=== PATIENT | male | born 1975 | race Caucasian/White ===

== ENCOUNTER 2018-11-02 00:09 | Emergency (ER) | payer OTHER ==
[~2018-11-02] VITALS: Ht 188 cm; Wt 95.3 kg
--- NOTE | ~2018-11-02 | EKG ---
[place] [address] ELECTROCARDIOGRAM REPORT Name: BEBA PRATT Room: [facility]#: [id number] Admission: 11/02/18 Attend Phys: Discharge: 11/02/18 Date of : 71 Report #: [id number] THIS REPORT FOR: //name// [facility] ED Test Date: 2018-11-02 Test Time: 00:31:41 Pat Name: BEBA PRATT Department: Room: Gender: M Accreditation Manager: MARK : 1975 Requested By: Juan A Oropeza Order Number: [id number] MD: Measurements Intervals [place] Rate: 125 P: 47 SC: 159 QRS: 59 QRSD: 82 T: 72 QT: 295 QTc: 426 Interpretive Statements Sinus tachycardia Ventricular premature complex Probable left atrial enlargement Probable anteroseptal infarct, old Baseline wander in lead(s) V1 Compared to ECG 04/18/2017 19:33:08 Ventricular premature complex(es) now present Myocardial infarct finding now present ST (T wave) deviation no longer present [email or web address] By: 0031 Epiphany [place], [place] /EPI
[~2018-11-02 00:09] MED LIST: INDOMETHACIN 5050 M1 PO; KEPPRA 500 MG500 M1 PO; NICOTINE PATCH1 EAC2 TD; PREDNISONE 20 M20 MG PO; ZYLOPRIM 300 MG PO
[2018-11-02 00:47] LABS: URINE BILIRUBIN NEGATIVE (Negative); URINE BLOOD NEGATIVE (Negative); URINE CLARITY CLEAR; URINE COLOR YELLOW; URINE GLUCOSE-RANDOM NEGATIVE (Negative); URINE LEUKOCYTES-REFLEX NEGATIVE (Negative); URINE NITRITE-REFLEX NEGATIVE (Negative); URINE PROTEIN NEGATIVE (Negative); URINE UROBILINOGEN 0.2 E.U./dl (0.2-1.0)
[2018-11-02 00:51] LABS: ABSOLUTE EOSINOPHILS 0.1 thou/uL (0.0-0.7); ABSOLUTE LYMPHOCYTES 1.6 thou/uL (0.8-5.3); ABSOLUTE MONOCYTES 0.5 thou/uL (0.0-1.2); ABSOLUTE NEUTROPHILS 5.3 thou/uL (1.6-8.1); BASOPHILS 0.4 %; EOSINOPHILS 0.9 %; HEMATOCRIT 41.3 % (42.0-52.0); HEMOGLOBIN 14.4 gm/dL (14.0-18.0); LYMPHOCYTES 21.7 %; MCH 34.9 pg (26.0-34.0); MCHC 34.8 g/dL (28.0-37.0); MCV 100.4 fL (80.0-100.0); MONOCYTES 6.1 %; NUCLEATED RBCS 0 /100WBC; PLATELET COUNT* 157 thou/uL (150-400); POLYS 70.9 %; RBC 4.12 mil/uL (4.50-6.00); RDW-CV 14.3 % (10.5-14.5); WBC 7.5 thou/uL (4.0-11.0)
[2018-11-02 01:00] LABS: URINE KETONES 3+ (Negative)
[2018-11-02 01:08] LABS: CALCIUM 9.4 mg/dL (8.5-10.1); CREATININE 0.8 mg/dL (0.6-1.3); POTASSIUM 3.4 mmol/L (3.5-5.1)
[2018-11-02 01:12] LABS: ALBUMIN 3.9 g/dL (3.4-5.0); TOTAL BILIRUBIN 1.2 mg/dL (<0.1-1.0); TOTAL PROTEIN 7.2 g/dL (6.4-8.2)
[2018-11-02 01:16] LABS: APTT 20.3 Seconds (25.0-31.3); PROTIME 10.6 Seconds (9.20-11.50)
[2018-11-02 02:28] VITALS: BP 141/93
[2018-11-03] MEDS ORDERED: PANTOPRAZOLE SO40 M1 PO (16:27)
== END 2018-11-02 02:28 | disposition left against medical advice (07) ==
LOC: M.ERS 00:09
PROVIDERS: Family Medicine
DX: R11.2 Nausea with vomiting, unspecified (principal); M10.9 Gout, unspecified; Z88.0 Allergy status to penicillin

== ENCOUNTER 2018-11-02 13:16 | Inpatient (IN) | payer OTHER ==
[~2018-11-02] VITALS: Ht 188 cm; Wt 98.9 kg
--- NOTE | ~2018-11-02 | CON ---
[address] [address] CONSULTATION Name: BEBA PRATT Room: [address] IN [facility]#: [id number] Admission: 11/02/18 Attend Phys: Ba Mckeon Discharge: 11/03/18 Date of : 71 Report #: [id number] THIS REPORT FOR: //name// CC: RYANNE physician/PCP Carey Richey DATE OF SERVICE: 11/03/2018 HISTORY OF PRESENT ILLNESS: This is a pleasant 43-year-old male, with past medical history significant for gout and alcohol abuse, who is presenting with abdominal pain, nausea and hematemesis. The patient reports he initially threw up dark-colored material, the consistency of coffee grounds and a couple of hours prior to presentation, had bright red blood in his vomit. The patient has had no further episodes since his hospitalization. The patient denies similar episodes in the past. The patient does report taking ibuprofen on a daily basis for his gout. Additionally, the patient also reports drinking 6-pack of beer every day and he has been doing this for the last several years. PAST MEDICAL HISTORY: As mentioned above, gout and alcohol abuse. PAST SURGICAL HISTORY: The patient had hand and elbow surgery in the remote past. SOCIAL HISTORY: The patient smokes 1 pack per day, takes about 6-pack of beer every day, but denies any recreational drug use. FAMILY HISTORY: There is no family history of esophageal, gastric or colonic malignancy. REVIEW OF SYSTEMS: Negative except for what is mentioned in the HPI. PHYSICAL EXAMINATION: VITAL SIGNS: Temperature 36.6, pulse rate 87, blood pressure 106/62, pulse ox 100% on room air. GENERAL: The patient is alert, awake, oriented x 3. HEENT: Pupils are equal, round, reactive to light and accommodation. Mucous membranes are moist. There is no congestion. LUNGS: Clear to auscultation bilaterally. CARDIOVASCULAR: Rate and rhythm regular, S1, S2 present. ABDOMEN: Soft. There is no distention, guarding or rigidity. EXTREMITIES: Warm, well perfused. There is no edema. SKIN: Warm and dry. LABORATORY DATA: Hemoglobin 8.2, hematocrit 23.8, platelet count 114, WBC count 7.2. Sodium 144, potassium 3.7, chloride 109, bicarbonate 27, BUN 22, creatinine is 0.8. Abdominal MRI, fatty [place] [address] CONSULTATION Name: TERRI PRATTCEZAR Rojas Room: [address]#: [id number] Admission: 11/02/18 Attend Phys: Ba Mckeon Discharge: 11/03/18 Date of : 71 Report #: [id number] significant biliary enlargement. No bile duct enlargement and normal gallbladder. ASSESSMENT AND PLAN: A pleasant 43-year-old male, with past medical history significant for alcohol abuse and anxiety, presenting with hematemesis. We will proceed with upper GI endoscopy to rule out the cause of bleeding. The patient will also be placed on PPI and octreotide drips for possible cirrhotic bleeding. Strongly advised cessation of NSAID use as this can cause ulceration of the upper gastrointestinal tract and bleeding. Also, recommended that the patient should moderate his alcohol use. Otherwise, the fatty liver disease can progress to laura cirrhosis, which is irreversible. Further recommendations will be based on results of the EGD. By: [id number] Lennon MD /nt
[2018-11-02 13:21] VITALS: BP 103/73
[2018-11-02 13:56] LABS: ABSOLUTE BASOPHILS 0.1 thou/uL (0.0-0.2); ABSOLUTE LYMPHOCYTES 1.5 thou/uL (0.8-5.3); ABSOLUTE MONOCYTES 0.7 thou/uL (0.0-1.2); BASOPHILS 0.7 %; EOSINOPHILS 0.2 %; HEMATOCRIT 35.4 % (42.0-52.0); LYMPHOCYTES 11.5 %; MCH 34.9 pg (26.0-34.0); MCHC 34.7 g/dL (28.0-37.0); MCV 100.7 fL (80.0-100.0); MONOCYTES 4.9 %; MPV 9.3 fl. (7.2-11.1); NUCLEATED RBCS 0 /100WBC; PLATELET COUNT* 187 thou/uL (150-400); POLYS 82.7 %; RBC 3.52 mil/uL (4.50-6.00); RDW-CV 13.9 % (10.5-14.5); WBC 13.3 thou/uL (4.0-11.0)
[2018-11-02 13:57] LABS: HEMOGLOBIN 12.3 gm/dL (14.0-18.0)
[2018-11-02 14:09] LABS: APTT 22.6 Seconds (25.0-31.3); INR 1.1; PROTIME 10.8 Seconds (9.20-11.50)
[2018-11-02 14:11] LABS: ANION GAP 12 mmol/L (7-16); BUN 37 mg/dL (7-18); CALCIUM 8.9 mg/dL (8.5-10.1); CHLORIDE 102 mmol/L (98-107); CO2 25 mmol/L (21-32); GLUCOSE 164 mg/dL (70-99); POTASSIUM 3.9 mmol/L (3.5-5.1); SODIUM 139 mmol/L (136-145)
[2018-11-02 14:20] LABS: ALBUMIN 3.6 g/dL (3.4-5.0); ALKALINE PHOSPHATASE 82 U/L (46-116); SGOT 63 U/L (15-37); SGPT 110 U/L (30-65); TOTAL BILIRUBIN 1.6 mg/dL (<0.1-1.0); TOTAL PROTEIN 6.6 g/dL (6.4-8.2); TROPONIN-I LEVEL <0.06 ng/mL (<0.06)
--- NOTE | 2018-11-02 14:22 | NUR ---
PT'S STATED THAT THEY WERE EXPOSED TO "CRE" OR "VRE" APPROX. 2 MONTHS AGO AND WERE "SICK FOR A MONTH AND A HALF WITH FLU-LIKE SYMPTOMS".
[2018-11-02 14:57] LABS: URINE BILIRUBIN NEGATIVE (Negative); URINE BLOOD NEGATIVE (Negative); URINE CLARITY CLEAR; URINE COLOR YELLOW; URINE GLUCOSE-RANDOM NEGATIVE (Negative); URINE KETONES TRACE (Negative); URINE LEUKOCYTES-REFLEX NEGATIVE (Negative); URINE NITRITE-REFLEX NEGATIVE (Negative); URINE PROTEIN NEGATIVE (Negative); URINE UROBILINOGEN 0.2 E.U./dl (0.2-1.0)
[2018-11-02 15:04] LABS: AMP/METHAMP Negative (Negative); BARBITURATES Negative (Negative); BENZODIAZEPINES Negative (Negative); COCAINE Negative (Negative); METHADONE Negative (Negative); OPIATES Negative (Negative); PCP Negative (Negative); THC Negative (Negative)
--- NOTE | 2018-11-02 15:36 | NUR ---
PER DR. ORELLANA, IT IS FINE FOR PATIENT TO HAVE ICE CHIPS.
[2018-11-02 15:57] VITALS: BP 107/69
[2018-11-02 16:43] VITALS: BP 105/75
--- NOTE | 2018-11-02 17:27 | NUR ---
RECIEVIED REPORT FROM CRISTIANE RN IN ER OF EXPECTED ADMISSION AT 1535- DX; GI BLEED WITH TACHYCARDIA- PT ARRIVED TO ROOM 213 VIA CART AT 1600, SBA TO BED- CARDAIC MONITOR PLACED ORDERED, TRACING ST- PT A&O X4- CONTINENT OF BOWEL AND BLADDER- SBA WITH TRANSFERS FOR SAFETY- LCTA, RESP EVEN AND UN-LABORED- VS 99.3 18 105/75 103 99% ON RA- PT DENIES ANY DYSPNEA- ABD SOFT/ROUND/TENDER, BS X4 QUADS- BM DIRRHEA REPORTED TODAY TO BE BLACK PER PT- REPORTED TO VOMITING BRIGHT RED BLOOD- IV NOTED TO RIGHT CA INTACT WITH IVF AND SANDSTATIN INFUSSING PRESCRIBED- NEW 20 GAUGE IV PLACED TO LEFT FA WITH PROTONIX STARTED AND INFUSSING PRESCRIBED- AND SON AT SIDE AT TIME OF ADMISSION- PT STATES TO DRINK 3-4 BEERS DAILY WITH OCCASSIONAL SHOT OF LIQUOR REPORTED PER - ADMITS THAT HE NEEDS TO STOP AND HAS BEEN WORKING ON IT-NPO IN PLACE PENDING GI CONSULT- SKIN C/D/I, GLASSESS IN PLACE- PT STATES DISCOMFORT/SORENESS TO ABD- CALL LIGHT AND PERSONAL BELONGINGS WITH IN REACH- ALL NEEDS MET AT THIS TIME-WCTM
[2018-11-02 20:00] VITALS: BP 112/65
[2018-11-03] VITALS: BP 104/61
--- NOTE | 2018-11-03 03:01 | NUR ---
ASSUMED PT CARE AT 1930. ASSESSMENT COMPLETED CHARTED. PT AND SON IN ROOM. UP WITH STANDBY ASSIST DUE TO 3 IV FLUIDS RUNNING AT ONCE. NO C/O PAIN OR NAUSEA. ABLE TO MAKE NEEDS KNOWN. PT IS RESTING IN BED AT THIS TIME. WILL CONTINUE TO MONITOR.
[2018-11-03 04:00] VITALS: BP 93/53
[2018-11-03 08:00] VITALS: BP 105/62
[2018-11-03 09:30] VITALS: BP 105/62
[2018-11-03 11:15] LABS: ABSOLUTE LYMPHOCYTES 1.6 thou/uL (0.8-5.3); ABSOLUTE MONOCYTES 0.3 thou/uL (0.0-1.2); ABSOLUTE NEUTROPHILS 5.2 thou/uL (1.6-8.1); BASOPHILS 0.2 %; EOSINOPHILS 0.2 %; HEMATOCRIT 23.8 % (42.0-52.0); LYMPHOCYTES 22.4 %; MCH 35.3 pg (26.0-34.0); MCHC 34.4 g/dL (28.0-37.0); MCV 102.4 fL (80.0-100.0); MONOCYTES 4.4 %; MPV 8.9 fl. (7.2-11.1); NUCLEATED RBCS 0 /100WBC; PLATELET COUNT* 114 thou/uL (150-400); POLYS 72.8 %; RBC 2.32 mil/uL (4.50-6.00); RDW-CV 14.3 % (10.5-14.5); WBC 7.2 thou/uL (4.0-11.0)
[2018-11-03 11:24] LABS: HEMOGLOBIN 8.2 gm/dL (14.0-18.0)
[2018-11-03 11:40] LABS: CALCIUM 8.5 mg/dL (8.5-10.1); CREATININE 0.8 mg/dL (0.6-1.3); POTASSIUM 3.7 mmol/L (3.5-5.1); TOTAL BILIRUBIN 0.8 mg/dL (<0.1-1.0); TOTAL PROTEIN 5.6 g/dL (6.4-8.2)
--- NOTE | 2018-11-03 12:29 | NUR ---
Pt is A&O. Resides at home with his and kids. Normally independent. No DME. No hx of HH or SNF. Goal is home at in. Following.
--- NOTE | 2018-11-03 14:14 | EKG ---
[place] [address] ELECTROCARDIOGRAM REPORT Name: BEBA PRATT Room: [address] ADM IN .R.#: [id number] Admission: 11/02/18 Attend Phys: Ba Mckeon Discharge: Date of : 71 Report #: [id number] THIS REPORT FOR: //name// [facility] ED Test Date: 2018-11-02 Test Time: 13:47:03 Pat Name: BEBA PRATT Department: Room: [facility] Gender: M Emergency Medicine Medical Director: : 1975 Requested By: Genevieve Puente Order Number: [id number] MD: Balwinder Mancilla Measurements Intervals [place] Rate: 120 P: 48 MA: 156 QRS: 38 QRSD: 87 T: QT: 306 QTc: 433 Interpretive Statements Sinus tachycardia Borderline T wave abnormalities Compared to ECG 04/18/2017 19:33:08 T-wave abnormality now present ST (T wave) deviation no longer present Electronically Signed On 11-03-2018 14:14:15 AUTOMATION MANAGER by Balwinder Mancilla [email or web address] <ELECTRONICALLY SIGNED> By: Balwinder Mancilla MD, FAC 11/03/18 1414 1347 [id number] Balwinder Mancilla MD, [facility] /EPI
[2018-11-03] MEDS ORDERED: PANTOPRAZOLE SO40 M1 PO (16:27)
--- NOTE | 2018-11-03 16:37 | NUR ---
VSS, ASSUMED CARE IN OF PT IN THE AM, ASSESSMENT PERFOREMD AND CHARTED, FALL PRECAUTIONS IN PLACE AND CALL LIGHT IN REACH, PT IS A&O4 AND ON UP AD HERIBERTO ON RA AND IS TRACING SR ON THE MONITOR, PT IS IS TO HAVE EGB AND TODAY, AT THIS TIME PT HAS HAD EGD AND IS HAS BEEN GIVEN D/C ORDERS, PT IV AND TELE MONITOR HAVE BEEN TAKEN OFF AND CHART CHECKED PT WAS GIVEN SCRIPTS AND WILL BE TAKEN OUT BY WHEEL CHAIR TO CAR WITH FAMILY. HOURLY ROUNDS COMPLETED.
[2018-11-03 17:11] VITALS: BP 105/62
== END 2018-11-03 17:30 | disposition home or self-care (01) | DRG 378 ==
LOC: M.ERS 13:16 → M.TBA-ER 14:42 → M.2W 14:42
PROVIDERS: Personal Emergency Response Attendant; Physician Assistant; ADMIT Internal Medicine
PROC: 0DJ08ZZ Inspection of Upper Intestinal Tract, Via Natural or Artificial Opening Endoscopic (ICD-10-PCS; principal; 2018-11-03)
DX: K92.2 Gastrointestinal hemorrhage, unspecified (principal); K22.10 Ulcer of esophagus without bleeding; M10.9 Gout, unspecified; K76.9 Liver disease, unspecified; K21.0 Gastro-esophageal reflux disease with esophagitis; F17.210 Nicotine dependence, cigarettes, uncomplicated; Z79.899 Other long term (current) drug therapy; Z88.0 Allergy status to penicillin

== ENCOUNTER 2020-06-03 21:03 | Emergency (ER) | payer OTHER ==
[~2020-06-03] VITALS: Ht 188 cm; Wt 90.7 kg
[~2020-06-03 21:03] MED LIST changes: +PANTOPRAZOLE SO40 M1 PO
[2020-06-03 21:28] VITALS: BP 131/100
== END 2020-06-03 22:00 | disposition left against medical advice (07) ==
LOC: M.ERS 21:03
DX: Z00.8 Encounter for other general examination (principal); Z88.0 Allergy status to penicillin